=== PATIENT | male | born 2000 | race African-American/Black ===

== ENCOUNTER 2021-11-26 22:18 | Emergency (ER) | payer MEDICAID ==
[~2021-11-26] VITALS: Ht 172.7 cm; Wt 114.0 kg
[2021-11-26] MEDS ORDERED: TETANUS, DIPHTHERIA, PERTUSSIS VAC/PF 0.5ML (>10YR OLD) IM ONE (23:00)
[2021-11-26] MEDS ORDERED: BACITRACIN ZINC OINT UDPKT TOP ONE (23:00)
[2021-11-26] MEDS ORDERED: IBUP-2028 MT (23:54)
[2021-11-26] MEDS ORDERED: CEPH500C2 MT (23:54)
[2021-11-27 02:00] VITALS: BP 112/78
== END 2021-11-27 02:15 | disposition home or self-care (01) ==
LOC: ER 22:18
DX: S01.83XA Puncture wound without foreign body of other part of head, initial encounter (principal); I30.9 Acute pericarditis, unspecified; X95.9XXA Assault by unspecified firearm discharge, initial encounter; Y93.89 Activity, other specified; Y92.89 Other specified places as the place of occurrence of the external cause
CPT/HCPCS: 70450; 72125; 93005; 99291; A4217

== ENCOUNTER 2022-09-09 05:53 | Emergency (ER) | payer MEDICAID ==
[~2022-09-09] VITALS: Ht 175.3 cm; Wt 73.9 kg
[~2022-09-09 05:53] MED LIST: CEPH500C2 MT; IBUP-2028 MT
[2022-09-09 06:33] VITALS: BP 139/80
[2022-09-09] MEDS ORDERED: BACITRACIN ZINC OINT UDPKT TOP ONE (07:30)
== END 2022-09-09 07:49 | disposition home or self-care (01) ==
LOC: ER 05:53
DX: S01.01XA Laceration without foreign body of scalp, initial encounter (principal); W22.8XXA Striking against or struck by other objects, initial encounter; Y93.89 Activity, other specified; Y92.89 Other specified places as the place of occurrence of the external cause; Y99.8 Other external cause status
CPT/HCPCS: 12002; 99282; Z7610

== ENCOUNTER 2022-10-29 10:09 | Emergency (ER) | payer MEDICAID ==
[~2022-10-29] VITALS: Ht 177.8 cm; Wt 80.0 kg
[2022-10-29 10:14] VITALS: BP 127/75
== END 2022-10-29 12:27 | disposition home or self-care (01) ==
LOC: ER 10:09
DX: Z48.02 Encounter for removal of sutures (principal)
CPT/HCPCS: 99281; Z7610

== ENCOUNTER 2023-01-01 16:27 | Emergency (ER) | payer MEDICAID ==
[~2023-01-01] VITALS: Ht 175.3 cm; Wt 77.0 kg
[2023-01-01] MEDS ORDERED: BACITRACIN ZINC OINT UDPKT TOP ONE (17:30)
[2023-01-01] MEDS ORDERED: LIDOCAINE HCL/PF 1% 10 MG/ML 5ML VIAL INFIL ONE (17:30)
[2023-01-01] MEDS ORDERED: HYDROCODONE/ACETAMINOPHEN 5/325MG TABLET PO ONE (17:45)
[2023-01-01] MEDS ORDERED: IBUPROFEN 600MG TABLET PO ONE (17:45)
[2023-01-01] MEDS ORDERED: SULF1TAB48 MT (18:06)
[2023-01-01 18:37] VITALS: BP 127/79
== END 2023-01-01 18:39 | disposition home or self-care (01) ==
LOC: ER 16:27
DX: L02.211 Cutaneous abscess of abdominal wall (principal)
CPT/HCPCS: 10060; 76705; 99284; J3490

== ENCOUNTER 2023-05-26 21:26 | Emergency (ER) | payer MEDICAID ==
[~2023-05-26] VITALS: Ht 175.3 cm; Wt 82.0 kg
[~2023-05-26 21:26] MED LIST changes: +SULF1TAB48 MT
[2023-05-26 23:17] VITALS: TEMP 97.9; O2SAT 98
[2023-05-27] MEDS ORDERED: KETOROLAC 30MG/ML VIAL IM ONE (00:30)
[2023-05-27] MEDS ORDERED: BACITRACIN ZINC OINT UDPKT TOP ONE (00:30)
[2023-05-27] MEDS ORDERED: LIDOCAINE HCL/PF 1% 10 MG/ML 5ML VIAL INFIL ONE (00:30)
[2023-05-27] MEDS ORDERED: KETOROLAC 30MG/ML VIAL IM NR (02:30)
[2023-05-27] MEDS ORDERED: LIDOCAINE HCL/PF 1% 10 MG/ML 5ML VIAL INFIL NR (02:30)
[2023-05-27] MEDS ORDERED: BACITRACIN ZINC OINT UDPKT TOP NR (02:30)
[2023-05-27 02:38] VITALS: BP 100/50; PULSE 90; RESP 17
[2023-05-27] MEDS ORDERED: CEPH500T MT (02:42)
[2023-05-27] MEDS ORDERED: SULF1TAB48 MT (02:42)
== END 2023-05-27 03:05 | disposition home or self-care (01) ==
LOC: ER 21:26
DX: L02.412 Cutaneous abscess of left axilla (principal); J45.909 Unspecified asthma, uncomplicated
CPT/HCPCS: 10060; 99283; 96372; J1885; J3490; Z7610 ×2